=== PATIENT | male | born 1945 | race Caucasian/White ===

== ENCOUNTER 2016-08-28 18:50 | Inpatient (IN) | payer OTHER, MEDICARE ==
[2016-08-28] MEDS ORDERED: ONDANSETRON 4 MG/2 ML VIAL IVP ONE (19:07)
[2016-08-28] MEDS ORDERED: NS 1,000 ML IV ONE (19:07)
[2016-08-28] MEDS ORDERED: HYDROmorphONE/DILAUDID 1 MG/ML SYR IVP ONE ×2 (19:07→21:09)
--- NOTE | 2016-08-28 19:12 | EDPHY ---
H & P Stated Complaint: ureteral stent removed today increasing l flank pain Time Seen by Provider: 08/28/16 18:59 HPI/ROS: CHIEF COMPLAINT: Left flank pain and inguinal pain HISTORY OF PRESENT ILLNESS: The patient is a the 71-year-old man who comes to the emergency department complaining of severe left flank and inguinal pain. He had a urethral stent removed today by Dr. Jun Christopher. It was placed several weeks ago for kidney stones after lithotripsy. He had Uro jet for the procedure and did well but after returning home his pain gradually increased until it became unbearable. He spoke with Dr. Christopher over the phone who is concerned about another kidney stone. He took Vicodin with minimal relief and oxycodone with no relief. No nausea or vomiting. No hematuria REVIEW OF SYSTEMS: Constitutional: denies: chills, fever, recent illness, recent injury EENTM: denies: blurred vision, double vision, nose congestion Respiratory: denies: cough, shortness of breath Cardiac: denies: chest pain, irregular heart rate, lightheadedness, palpitations Gastrointestinal/Abdominal: denies: abdominal pain, diarrhea, nausea, vomiting, blood streaked stools Genitourinary: See HPI denies: dysuria, frequency, hematuria, Musculoskeletal: denies: joint pain, muscle pain Skin: denies: lesions, rash, jaundice, bruising Neurological: denies: headache, numbness, paresthesia, tingling, dizziness, weakness Hematologic/Lymphatic: denies: blood clots, easy bleeding, easy bruising Immunologic/allergic: denies: HIV/AIDS, transplant EXAM: GENERAL: Well-appearing, well-nourished and in no acute distress. HEAD: Atraumatic, normocephalic. EYES: Pupils equal round and reactive to light, extraocular movements intact, sclera anicteric, conjunctiva are normal. ENT: TMs normal, nares patent, oropharynx clear without exudates. Moist mucous membranes. NECK: Normal range of motion, supple without lymphadenopathy or JVD. LUNGS: Breath sounds clear to auscultation bilaterally and equal. No wheezes rales or rhonchi. HEART: Regular rate and rhythm without murmurs, rubs or gallops. ABDOMEN: Soft, nontender, normoactive bowel sounds. No guarding, no rebound. No masses appreciated. BACK: No CVA tenderness, no spinal tenderness, step-offs or deformities EXTREMITIES: Normal range of motion, no pitting or edema. No clubbing or cyanosis. NEUROLOGICAL: Cranial nerves II through XII grossly intact. Normal speech, normal gait. 5/5 strength, normal movement in all extremities, normal sensation PSYCH: Normal mood, normal affect. SKIN: Warm, dry, normal turgor, no visible rashes or lesions. Source: Patient Exam Limitations: No limitations - Personal History Current Tetanus/Diphtheria Vaccine: Unsure - Medical/Surgical History Hx Asthma: No Hx Chronic Respiratory Disease: No Hx Diabetes: Yes Hx Cardiac Disease: Yes Hx Renal Disease: No Hx Cirrhosis: No Hx Alcoholism: No Hx HIV/AIDS: No Hx Splenectomy or Spleen Trauma: No Other PMH: HTN,HYPERLIPIDEMIA,kidney stones - Family History Significant Family History: No pertinent family hx - Social History Smoking Status: Never smoked Alcohol Use: Sober Drug Use: None Constitutional: Initial Vital Signs Temperature (C) 36.5 C 08/28/16 18:55 Heart Rate 109 H 08/28/16 18:55 Respiratory Rate 19 08/28/16 18:55 Blood Pressure 154/101 H 08/28/16 18:55 O2 Sat (%) 95 08/28/16 18:55 O2 Delivery Mode Nasal Cannula O2 (L/minute) 2 Allergies/Adverse Reactions: Sulfa (Sulfonamide Antibiotics) Allergy (Intermediate, Verified 08/28/16 22:07) Home Medications: Medication Instructions Recorded Atorvastatin Calcium [Lipitor 10 10 mg PO HS 04/18/16 mg (*)] Enalapril Maleate [Vasotec 20 MG 20 mg PO BID 04/18/16 (*)] Fluticasone Nasal [Flonase Nasal 2 sprays [place] DAILY PRN 04/18/16 [place]] Pioglitazone HCl [Actos 15mg (*)] 15 mg PO DAILY 04/18/16 glipiZIDE [Glipizide] 5 mg PO BID 04/18/16 Hydrocodone/Acetaminophen [[place] 1 - 2 tab PO Q6H PRN 08/28/16 5/325 (*)] oxyCODONE IR [Oxycodone Ir (*)] 5 mg PO Q4-6PRN PRN 08/28/16 Medical Decision Making - Diagnostics Imaging: Results: CT scan of the abdomen or pelvis was obtained. The results of the study are positive for kidney stone 4 mm wide, 10 mm long. The study was read by Dr. Cisco Ghosh. I viewed the images myself on the PACS system. ED Course/Re-evaluation: We discussed the patient's CT results. He is still in pain although much better. I will Re treat him with Dilaudid. 9:45 p.m. the patient is still having pain. He will need to be admitted for pain control. Patient's daughter tells me now that he is also currently receiving radiation therapy for prostate cancer. His prostate was removed. Discussed the case with Dr. Magan [place]. Differential Diagnosis: Partial list of the Differential diagnosis considered include but were not limited to; kidney stone, hematoma, perforation and although unlikely based on the history and physical exam, I also considered urinary tract infection, diverticulitis. I discussed these differential diagnoses and the plan with the patient as well as the usual and expected course. The patient understands that the diagnosis is provisional and that in medicine we are not always correct and that further workup is often warranted. Usual and customary warnings were given. All of the patient's questions were answered. The patient was instructed to return to the emergency department should the symptoms at all worsen or return, otherwise to followup with the physician as we discussed. - Data Points Laboratory Results: Laboratory Results 08/28/16 19:53 08/28/16 19:53 Medications Given: Discontinued Medications Hydromorphone HCl (Dilaudid) 1 mg IVP EDNOW ONE Stop: 08/28/16 19:08 Last Admin: 08/28/16 20:03 Dose: 1 mg Hydromorphone HCl (Dilaudid) 1 mg IVP EDNOW ONE Stop: 08/28/16 21:10 Last Admin: 08/28/16 21:12 Dose: 1 mg Hydromorphone HCl (Dilaudid) 0.2 - 0.4 mg IVP Q2HRS PRN PRN Reason: Pain, Severe Unable to Take PO Stop: 09/07/16 22:07 Last Admin: 08/28/16 23:08 Dose: 0.4 mg Sodium Chloride (Ns) 1,000 mls @ 0 mls/hr IV ONCE ONE PRN Reason: Wide Open Stop: 08/28/16 19:08 Last Admin: 08/28/16 20:03 Dose: 1,000 mls Ondansetron HCl (Zofran) 4 mg IVP EDNOW ONE Stop: 08/28/16 19:08 Last Admin: 08/28/16 20:00 Dose: 4 mg Departure - Departure Disposition: [facility] Acute Clinical Impression: Renal colic on left side Condition: Fair
[2016-08-28] MEDS ORDERED: LETS SOLN TOPICAL 1 EA SYR TP ONE (19:25)
[2016-08-28 20:11] LABS: % IMMATURE GRANULYOCYTES 0.6 % (0.0-1.1); ABSOLUTE IMMATURE GRANULOCYTES 0.05 10^3/uL (0.00-0.10); ADD DIFF? NO; ADD MORPH? NO; ADD SCAN? NO; ATYPICAL LYMPHOCYTE FLAG 0 (0-99); FRAGMENT RBC FLAG 0 (0-99); HEMATOCRIT 36.3 % (40.0-51.0); HEMOGLOBIN 12.5 g/dL (13.7-17.5); LEFT SHIFT FLG 0 (0-99); LIPEMIA HEMOLYSIS FLAG 90 (0-99); MEAN CELL HEMOGLOBIN 31.1 pg (27.9-34.1); MEAN CELL HEMOGLOBIN CONCENTR. 34.4 g/dL (32.4-36.7); MEAN CELL VOLUME 90.3 fL (81.5-99.8); MEAN PLATELET VOLUME 8.3 fL (8.7-11.7); PLATELET CLUMPS FLAG 0 (0-99); PLATELET COUNT 280 10^3/uL (150-400); RED BLOOD CELL COUNT 4.02 10^6/uL (4.40-6.38); RED CELL DISTRIBUTION WIDTH 12.7 % (11.5-15.2)
[2016-08-28 20:18] LABS: COLOR PALE YELLOW; LEUKOCYTE ESTERASE,URINE NEGATIVE (NEGATIVE); NITRITE,URINE NEGATIVE (NEGATIVE)
[2016-08-28 20:19] LABS: ALANINE AMINOTRANSFERASE 38 IU/L (21-72); ALKALINE PHOSPHATASE 91 IU/L (38-126); ANION GAP 15 mEq/L (8-16); ASPARTATE AMINOTRANSFERASE 26 IU/L (17-59); BILIRUBIN,TOTAL 0.5 mg/dL (0.1-1.4); BILIRUBIN-CONJUGATED 0.3 mg/dL (0.0-0.5); BILIRUBIN-UNCONJUGATED 0.2 mg/dL (0.0-1.1); CALCIUM 9.5 mg/dL (8.5-10.4); CARBON DIOXIDE 21 mEq/l (22-31); CHLORIDE 98 mEq/L (97-110); CREATININE 1.4 mg/dL (0.7-1.3); GLOMERULAR FILTRATION RATE 50; GLUCOSE 148 mg/dL (70-100); POTASSIUM 4.6 mEq/L (3.5-5.2); SODIUM 134 mEq/L (134-144); TOTAL PROTEIN 6.9 g/dL (6.3-8.2)
[2016-08-28] MEDS ORDERED: IOPAMIDOL (ISOVUE-300) 50 ML VIAL IV ONE (20:29)
[2016-08-28] MEDS ORDERED: HYDROmorphONE/DILAUDID 1 MG/ML SYR ONE (21:02)
--- NOTE | 2016-08-28 21:40 | CT ---
CT Scan of the Urinary Tract (Abdomen and Pelvis Without Contrast) Clinical Indications: Severe left flank pain in a 71-year-old male with a history of nephrolithiasis who had a left ureteral stent removed today. Technique: Multidetector helical CT imaging was performed from the lung bases to the urinary bladder , without contrast. Axial images are obtained at 5-mm intervals and reformatted at 1.5-mm thickness. The examination is reviewed on the workstation at multiple window/level settings. Sagittal and coron al reformations are performed. Dose reduction techniques were utilized for this examination. Findings Abdomen: There is bilateral nephrolithiasis, with a single punctate calcification on the right side. On the left in the lower pole, there is a 9- x 4-mm nonobstructing calculus. There is also a punct ate nonobstructing calculus in the left upper collecting system. There is prominent hydronephrosis a s well as edema in the left perinephric fat. The left ureter is dilated throughout its course in the abdomen into the pelvis where there is a 10- x 4-mm distal left ureteral calculus. There is no righ t hydronephrosis or ureteral obstruction. The imaged noncontrast portions of the liver, spleen, gal lbladder, pancreas and adrenals are unremarkable. The aorta tapers normally. The lung bases are alicia ar. Pelvis: The bladder is decompressed and not well assessed on this study. Aortic calcification is se en, without aneurysmal dilatation. Minimal degenerative changes are noted in the spine. There is no free fluid seen. Impressions 1. Distal left ureteral calculus, measuring 10 x 4 mm, located in the deep pelvis, with associated l eft obstructive uropathy. 2. See above report for additional findings. A preliminary report was called to Dr. Melecio Joyner at 2110 hours in the Emergency Department. Attention: This CT examination is specifically designed to evaluate patients who are clinically susp ected of having acute obstructive uropathy. This examination does not use radiographic contrast, and as such, provides only a limited evaluation of the abdomen, pelvis and retroperitoneum.
[2016-08-28] MEDS ORDERED: ONDANSETRON DISINTEGRATING 4 MG TAB PO PRN (22:08)
[2016-08-28] MEDS ORDERED: HYDROmorphONE/DILAUDID 1 MG/ML SYR IVP PRN (22:08)
[2016-08-28] MEDS ORDERED: ACETAMINOPHEN 325 MG TAB PO PRN (22:08)
[2016-08-28] MEDS: NS 1,000 ML IV SCH (23:08)
[2016-08-28] MEDS ORDERED: NALOXONE HCL 0.4 MG/ML INJ IVP PRN (23:36)
[2016-08-29] MEDS: HYDROmorphONE/DILAUDID 6 MG/30 ML PCA IV PRN ×3 (00:02→16:12)
--- NOTE | 2016-08-29 00:16 | GHP ---
[f rep st] HISTORY AND PHYSICAL DATE OF ADMISSION: 08/28/2016 CHIEF COMPLAINT: Abdominal pain. HISTORY OF PRESENT ILLNESS: A 71-year-old male with a history of nephrolithiasis status post a urete ral stent removal the day of presentation. Patient reportedly left Dr. Christopher's clinic without any symptoms and within 30 minutes of returning home from stent removal developed left-sided abdominal p ain and testicular pain. Pain increased in intensity. Patient called Dr. Christopher's office. They c alled in a narcotic prescription, which had limited ability to control his pain, and was therefore se nt to the emergency department for evaluation. In the emergency department, the patient is endorsing some nausea. No vomiting. Endorsing left-sided testicular up to flank pain. Denies any changes in his bowel habits. Denies any hematuria. Denies any headaches, vision changes, palpitations, chest pain, shortness of breath. PAST MEDICAL HISTORY: 1. Nephrolithiasis status post ureteral stenting. 2. Diabetes mellitus. 3. Hypertension. 4. History of a facial abscess secondary to MRSA. 5. History of a left inguinal abscess secondary to MRSA. 6. Prostate cancer, receiving radiation. SOCIAL HISTORY: Negative for tobacco, alcohol, or illicit drugs. FAMILY HISTORY: Negative for prostate cancer. REVIEW OF SYSTEMS: A 10-point review of systems is negative with the exception of that reported in t he HPI. PHYSICAL EXAMINATION: VITAL SIGNS: Blood pressure 118/62, heart rate 93, respiratory rate 18, 92% o n room air, 37.1. GENERAL: This is a healthy-appearing middle-aged male in no acute distress. HEEN T: Notable for moist mucous membranes. Eye exam is negative for any icterus. CARDIAC: Patient is regular rate and rhythm. No murmurs, gallops, or rubs. PULMONARY: Patient is clear to auscultation bilaterally. GASTROINTESTINAL: Patient is obese, has positive bowel sounds, is markedly tender to palpation in the left lower and upper quadrants. No rebound or guarding. MUSCULOSKELETAL: Negative for any lower extremity edema. SKIN: Negative for any rashes. NEUROLOGIC: Patient is alert and o riented x3. PSYCHIATRIC: He is pleasant and cooperative on interview and examination. DATA: White count 8.4, hematocrit 36.3, platelets of 280. Creatinine of 1.4, recent baseline 1.1. Sodium 134, BUN 23, glucose of 148. Hemoglobin A1c 7.2. Liver function tests are normal. Urinalysi s shows 2+ protein, 1+ blood. CT of the abdomen, which I personally reviewed and interpreted, shows a 10 x 4 mm left-sided ureteral calculus. There is prominent hydronephrosis as well as edema of the left kidney per Radiology. ASSESSMENT AND PLAN: This is a 71-year-old male, presenting with a recurrent ureteral calculus. 1. Acute left ureteral calculus. Patient has marked pain with hydronephrosis and acute kidney injur y. Patient is being admitted. Will initiate IV Dilaudid for pain control, IV fluid resuscitation, a nd consult Urology for recommendations regarding intervention. Will also start Flomax. 2. Obstructive uropathy. Patient's creatinine is above his baseline. Will hold his FELIPE inhibitor, hydrate, initiate Flomax, and consult Urology. Recheck his renal function in the morning. 3. Diabetes. Continue patient's oral medications and diabetic diet. 4. Hypertension. Patient's blood pressures are adequately controlled at this time. Will hold his A CE inhibitor, hydrate, and follow his renal function in the morning. 5. Prophylaxis. Lovenox. DIET: Diabetic. DISPOSITION: Expecting greater than 2 midnights. Patient is requiring IV pain medications and urolo gic consultation for recurrent ureterolithiasis. I have discussed the case with the emergency room dickson oscar as well as the on-call urologist. They will consult the patient in the morning. /[id number]/MODL
[2016-08-29] MEDS: PANTOPRAZOLE SODIUM 40 MG TAB PO SCH ×2 (00:50→10:07)
[2016-08-29] MEDS: TAMSULOSIN HCL 0.4 MG CAP PO SCH ×3 (00:50→20:15)
[2016-08-29 05:25] LABS: % IMMATURE GRANULYOCYTES 0.6 % (0.0-1.1); ABSOLUTE IMMATURE GRANULOCYTES 0.03 10^3/uL (0.00-0.10); ADD DIFF? NO; ADD MORPH? NO; ADD SCAN? NO; ATYPICAL LYMPHOCYTE FLAG 20 (0-99); FRAGMENT RBC FLAG 0 (0-99); HEMATOCRIT 33.6 % (40.0-51.0); HEMOGLOBIN 11.2 g/dL (13.7-17.5); LEFT SHIFT FLG 0 (0-99); LIPEMIA HEMOLYSIS FLAG 80 (0-99); MEAN CELL HEMOGLOBIN 30.5 pg (27.9-34.1); MEAN CELL HEMOGLOBIN CONCENTR. 33.3 g/dL (32.4-36.7); MEAN CELL VOLUME 91.6 fL (81.5-99.8); MEAN PLATELET VOLUME 8.4 fL (8.7-11.7); PLATELET CLUMPS FLAG 0 (0-99); PLATELET COUNT 249 10^3/uL (150-400); RED BLOOD CELL COUNT 3.67 10^6/uL (4.40-6.38); RED CELL DISTRIBUTION WIDTH 12.8 % (11.5-15.2)
[2016-08-29 05:56] LABS: ANION GAP 12 mEq/L (8-16); CALCIUM 8.8 mg/dL (8.5-10.4); CARBON DIOXIDE 22 mEq/l (22-31); CHLORIDE 106 mEq/L (97-110); CREATININE 1.4 mg/dL (0.7-1.3); GLOMERULAR FILTRATION RATE 50; GLUCOSE 126 mg/dL (70-100); POTASSIUM 4.5 mEq/L (3.5-5.2); SODIUM 140 mEq/L (134-144)
[2016-08-29] MEDS: ENOXAPARIN 40 MG/0.4 ML SYR SC SCH (09:58)
[2016-08-29] MEDS: glipiZIDE 5 MG TAB PO SCH ×2 (09:58→20:12)
[2016-08-29] MEDS: PIOGLITAZONE HCL 15 MG TAB PO SCH (10:07)
[2016-08-29] MEDS: FLUTICASONE NASAL 120 SPRAYS/16 GM MDI EACHNARE PRN (10:41)
--- NOTE | 2016-08-29 12:58 | HOSPPROG ---
Hospitalist Progress Note Assessment/Plan: Left ureteral calculus with obstructive uropathy - Cr up to 1.4, but stable since yesterday. He has e/o hydro on CT with significant pain and stone is ~1 cm. No fevers or e/o infection, monitor closely -Urology to consult, suspect will need intervention FE due to above - IVF's, hold fide inhibitor, avoid nephrotoxic agents. DM - bg's adequately controlled on his oral hypoglycemics, continue Hypertension - Adequate control DVT PPLX - Lovenox for now, hold if intervention planned Full code Subjective: Pt reports pain better controlled. No fevers/chills/rigors. No N/ V. He has h/o kidney stones. Objective: Vital Signs Temp Pulse Resp BP Pulse Ox 36.9 C 106 H 14 132/59 H 96 08/29/16 11:52 08/29/16 11:52 08/29/16 11:52 08/29/16 11:52 08/29/16 11:52 Laboratory Results 08/29/16 05:04 08/29/16 05:04 08/28/16 08/29/16 08/30/16 05:59 05:59 05:59 Intake Total 595 Output Total 1225 Balance 595 -1225 - Physical Exam Constitutional: no apparent distress Eyes: PERRL Ears, Nose, Mouth, Throat: moist mucous membranes Cardiovascular: regular rate and rhythym Respiratory: no respiratory distress, clear to auscultation Gastrointestinal: normoactive bowel sounds, other (+TTP no r/r/g) Skin: warm Neurologic: AAOx3 Psychiatric: interacting appropriately ICD10 Worksheet Patient Problems: Problems Problem Status Diagnosed Renal colic on left side Acute Facial abscess Acute MRSA (methicillin resistant Staphylococcus aureus) Acute 04/18/16
[2016-08-29] MEDS: ONDANSETRON 4 MG/2 ML VIAL IVP PRN ×2 (14:53→18:39)
[2016-08-29] MEDS: NS 1,000 ML IV SCH (18:39)
[2016-08-29] MEDS: ATORVASTATIN CALCIUM 10 MG TAB PO SCH (20:12)
[2016-08-29] MEDS: HYDROCODONE/APAP 5/325 TAB PO PRN (20:14)
[2016-08-29] MEDS: NIFEdipine 10 MG CAP PO SCH (23:02)
[2016-08-30] MEDS: HYDROmorphONE/DILAUDID 6 MG/30 ML PCA IV PRN ×3 (02:13→16:45)
[2016-08-30] MEDS: HYDROCODONE/APAP 5/325 TAB PO PRN ×4 (02:14→14:44)
[2016-08-30] MEDS: NS 1,000 ML IV SCH (04:21)
[2016-08-30] MEDS: FLUTICASONE NASAL 120 SPRAYS/16 GM MDI EACHNARE PRN (07:26)
[2016-08-30] MEDS: glipiZIDE 5 MG TAB PO SCH (07:27)
[2016-08-30] MEDS: TAMSULOSIN HCL 0.4 MG CAP PO SCH ×3 (07:27→23:31)
[2016-08-30] MEDS: NIFEdipine 10 MG CAP PO SCH ×2 (07:27→17:07)
[2016-08-30] MEDS: PANTOPRAZOLE SODIUM 40 MG TAB PO SCH (07:27)
[2016-08-30] MEDS: PIOGLITAZONE HCL 15 MG TAB PO SCH (07:27)
[2016-08-30] MEDS: ENOXAPARIN 40 MG/0.4 ML SYR SC SCH (09:29)
--- NOTE | 2016-08-30 09:41 | HOSPPROG ---
Hospitalist Progress Note Assessment/Plan: Left ureteral calculus with obstructive uropathy - Cr up to 1.4, but stable since yesterday. He has e/o hydro on CT with significant pain and stone is ~1 cm. No fevers or e/o infection, monitor closely. Pain control with dilaudid [employer]. -OR today per urology for definitive management -NPO FE due to above - IVF's, hold fide inhibitor, avoid nephrotoxic agents. Prostate cancer - pt receiving daily XRT per [facility]. Will alert them in AM of pt admission. May be able to dc tomorrow and go for radiation. DM - bg's adequately controlled, hold glipizide today given npo status, check q6h bg's, prn low dose lispro Hypertension - Adequate control DVT PPLX - Lovenox held for procedure, place SCD's Full code Subjective: Pt reports pain is controlled. No fevers/chills. No CP or SOB. He has XRT mon-fri at [facility] for prostate cancer. NPO awaiting urology intervention. Objective: Vital Signs Temp Pulse Resp BP Pulse Ox 37.0 C 112 H 16 101/46 L 93 08/30/16 08:00 08/30/16 08:00 08/30/16 08:00 08/30/16 08:00 08/30/16 08:00 Laboratory Results 08/29/16 05:04 08/29/16 05:04 08/29/16 08/30/16 08/31/16 05:59 05:59 05:59 Intake Total 595 3808 0 Output Total 2675 350 Balance 595 1133 -350 - Physical Exam Constitutional: no apparent distress Eyes: PERRL Ears, Nose, Mouth, Throat: moist mucous membranes Cardiovascular: regular rate and rhythym Respiratory: no respiratory distress, clear to auscultation Gastrointestinal: normoactive bowel sounds, soft, non-tender abdomen Skin: warm Neurologic: AAOx3 Psychiatric: interacting appropriately ICD10 Worksheet Patient Problems: Problems Problem Status Diagnosed Renal colic on left side Acute Facial abscess Acute MRSA (methicillin resistant Staphylococcus aureus) Acute 04/18/16
[2016-08-30] MEDS ORDERED: D50W 25 GM/50 ML SYR IVP PRN (09:42)
[2016-08-30] MEDS ORDERED: INSULIN LISPRO 100 UNIT/ML SC SCH (10:00)
[2016-08-30] MEDS: D5W NS 1,000 ML IV SCH (11:30)
[2016-08-30 11:45] LABS: ANION GAP 10 mEq/L (8-16); CALCIUM 8.5 mg/dL (8.5-10.4); CARBON DIOXIDE 23 mEq/l (22-31); CHLORIDE 106 mEq/L (97-110); CREATININE 1.7 mg/dL (0.7-1.3); GLOMERULAR FILTRATION RATE 40; GLUCOSE 152 mg/dL (70-100); POTASSIUM 4.1 mEq/L (3.5-5.2); SODIUM 139 mEq/L (134-144)
[2016-08-30] MEDS: INSULIN LISPRO 100 UNIT/ML SC SCH ×3 (11:59→23:30)
--- NOTE | 2016-08-30 14:43 | SOAPPROG ---
SOAP Progress Note Assessment/Plan: Assessment: persistent left flank pain due to steinstrasse Plan:To OR today due to poor progression of stone fragments 08/30/16 14:41 Subjective: feeling poorly - flinching from flank pain Objective: Vital Signs Temp Pulse Resp BP Pulse Ox 36.8 C 109 H 20 124/68 H 92 08/30/16 14:00 08/30/16 14:00 08/30/16 14:00 08/30/16 14:00 08/30/16 14:00 Laboratory Results 08/29/16 05:04 08/30/16 11:10 08/29/16 08/30/16 08/31/16 05:59 05:59 05:59 Intake Total 595 3808 0 Output Total 2675 750 Balance 595 1133 -750 - Time Spent With Patient Time Spent With Patient: 33 min >50% face to face - Pending Discharge Pending Discharge Within 48 Hours: Yes Pending Discharge Date: 09/01/16 Pending Discharge Time: 11:00 Physical Exam - Physical Exam EENT: PERRL/EOMI Neck: non-tender Respiratory: chest non-tender Cardiac/Chest: normal peripheral pulses Abdomen: normal bowel sounds, guarding, other (++LEFT CVA tenderness) Male Genitalia: deferred Back: Normal inspection, CVA tenderness Skin: normal color Lymphatic: no adenopathy Extremities: normal range of motion Neuro/Psych: no motor/sensory deficits ICD10 Worksheet Patient Problems: Problems Problem Status Diagnosed Renal colic on left side Acute Facial abscess Acute MRSA (methicillin resistant Staphylococcus aureus) Acute 04/18/16
--- NOTE | 2016-08-30 15:12 | GCON ---
[f rep st] CONSULTATION DATE OF CONSULTATION: 08/29/2016 HISTORY OF PRESENT ILLNESS: This is a 71-year-old male with a history of nephrolithiasis with a gee nt removal on 08/28/2016. He had his stent removed today, had minimal discomfort at first and then renate Christopher's office, said he was having pain and a necrotic prescription was not effective. He is feeling better with the oral pain medication, but still having significant pain and I discussed with him his imaging results, which show steinstrasse for 1 cm on the left ureter and hydronephrosis . We will attempt medical management with tamsulosin and nifedipine and if this fails, then bring patrizia singleton to the operating room tomorrow. PAST MEDICAL HISTORY: Nephrolithiasis with stents, diabetes mellitus, hypertension, MRSA from a faci al abscess and left genital abscess, and history of prostate cancer. He has undergone radiation for this. SOCIAL HISTORY: Negative for tobacco, alcohol, and drugs. FAMILY HISTORY: Negative for prostate cancer. REVIEW OF SYSTEMS: A 10-point review of systems is negative, except for that reported in the history of present illness, so positive for nausea, vomiting, severe left flank pain, and CVA tenderness. PHYSICAL EXAMINATION: VITAL SIGNS: His blood pressures are 130s over 60s, heart rate is 90s, respir ations rate is 18, 92% on room air, 37.1. GENERAL: Healthy-appearing male, no acute distress. HEEN T: Normocephalic, atraumatic. CARDIAC: No JVD. No cyanosis. PULMONARY: No retractions or ____. No cyanosis. GASTROINTESTINAL: Obese. Positive bowel sounds. Markedly tender to palpation in the left lower and upper quadrants. No rebound tenderness or guarding. MUSCULOSKELETAL: Negativ e for any lower extremity edema. SKIN: Negative for rashes. NEUROLOGIC: Alert and oriented x3. P SYCHIATRIC: He is pleasant, cooperative, and normal mood and affect. LAB DATA: White count on admission is 84, hematocrit is 36.3, platelets 280. Creatinine 1.4, sodium 134, glucose 148. Hemoglobin A1c 7.2. Urinalysis shows 2+ protein and 1+ blood. IMAGING: CT of the abdomen showed a 10 x 4 mm group of small stones on the left side in the ureter w ith significant hydronephrosis. ASSESSMENT AND PLAN: 1. A 71-year-old male, presenting with recurrent ureteral calculus. This is likely steinstrasse and if he does not pass the stone, then we will perform intervention in the OR. 2. Obstructive uropathy. 3. Hold his FELIPE-inhibitor, and I agree with this. Continue Flomax and nifedipine, N.p.o. At [facility], and we will plan on the OR tomorrow. /[id number]/MODL
[2016-08-30] MEDS ORDERED: IOPAMIDOL (ISOVUE-M 300) 15 ML VIAL IV ONE (18:44)
[2016-08-30] MEDS ORDERED: LIDOCAINE 2% JELLY 20 ML (UROJECT) ONE (18:44)
[2016-08-30] MEDS ORDERED: LIDOCAINE 1% 5 ML SDV ONE (19:14)
[2016-08-30] MEDS ORDERED: MIDAZOLAM 2 MG/2 ML VIAL ONE (19:43)
[2016-08-30] MEDS ORDERED: LIDOCAINE 2% JELLY 5 ML TUBE ONE (20:02)
[2016-08-30] MEDS ORDERED: PROPOFOL/EMULSION 500 MG/50 ML BOTTLE IV ONE (20:02)
[2016-08-30] MEDS ORDERED: LIDOCAINE 2% 100 MG/5 ML SYR IVP ONE (20:03)
[2016-08-30] MEDS ORDERED: PHENYLEPHRINE HCL 100 MCG/ML SYR ONE (20:26)
[2016-08-30] MEDS ORDERED: ONDANSETRON 4 MG/2 ML VIAL ONE (20:44)
[2016-08-30] MEDS ORDERED: DEXAMETHASONE 4 MG/ML VIAL ONE (20:44)
[2016-08-30] MEDS ORDERED: ceFAZolin 1 GM VIAL ONE ×2 (20:44)
[2016-08-30] MEDS ORDERED: fentaNYL 100 MCG/2 ML INJ ONE (21:44)
--- NOTE | 2016-08-30 21:45 | DX ---
Fluoroscopy with single abdomen Images at 2031 hours History: Left ureteral stent placement for left ureterolithiasis. Fluoroscopy time: 0.3 seconds utilized intraoperatively by the radiology. Dose 1.6 mGy. Technique: Single abdomen intraoperative images have just been presented for interpretation. Findings: Double pigtail left ureteral stent identified with the proximal tip in the region of the le ft kidney and the distal tip in the region of the left side of the bladder. Calculus is noted overlyi ng the lower pole left kidney measuring at least 6 mm. Calculus in the left side of the distal ureter s not well visualized. IMPRESSION: Double pigtail ureteral stent in the region of the left renal collecting system.
[2016-08-30] MEDS ORDERED: HYDROCODONE/APAP 5/325 TAB ONE (22:32)
[2016-08-30] MEDS: ATORVASTATIN CALCIUM 10 MG TAB PO SCH (23:46)
[2016-08-31] MEDS: D5W NS 1,000 ML IV SCH (02:47)
[2016-08-31 05:38] LABS: ANION GAP 12 mEq/L (8-16); CARBON DIOXIDE 23 mEq/l (22-31); CHLORIDE 107 mEq/L (97-110); CREATININE 1.5 mg/dL (0.7-1.3); GLOMERULAR FILTRATION RATE 46; GLUCOSE 196 mg/dL (70-100); POTASSIUM 4.7 mEq/L (3.5-5.2); SODIUM 142 mEq/L (134-144)
[2016-08-31] MEDS: INSULIN LISPRO 100 UNIT/ML SC SCH (06:30)
[2016-08-31 07:40] VITALS: RESP 18
[2016-08-31] MEDS: TAMSULOSIN HCL 0.4 MG CAP PO SCH ×2 (07:51)
[2016-08-31] MEDS: PANTOPRAZOLE SODIUM 40 MG TAB PO SCH (07:51)
[2016-08-31] MEDS: HYDROCODONE/APAP 5/325 TAB PO PRN (10:40)
[2016-08-31] MEDS ORDERED: INSULIN LISPRO 100 UNIT/ML SC SCH (11:30)
[2016-08-31 11:34] VITALS: BP 120/59; PULSE 94; TEMP 97.9; O2SAT 94
--- NOTE | 2016-08-31 20:26 | GDS ---
[f rep st] DISCHARGE SUMMARY DISCHARGE DIAGNOSES: 1. Left ureteral calculus. 2. Obstructive uropathy. 3. Acute kidney injury. 4. Prostate cancer. 5. Diabetes mellitus. 6. Hypertension. CONSULTANTS: Urology, Dr. Shaan Agustin. HISTORY: For details, please see the dictated history and physical dated August 28. In brief, th e patient is a 71-year-old male with a history of prostate cancer and nephrolithiasis who presented t o the Emergency Department after removal of ureteral stent, complaining of left-sided abdominal pain. Imaging in the Emergency Department revealed a 4 x 10 mm left-sided ureteral calculus. He was admi tted to the hospital for further management. HOSPITAL COURSE: The patient admitted to the Medical-Surgical Unit. He received pain control with I V Dilaudid in the form of a [employer]. In addition, he received IV fluids. Urology was consulted. He was started on Flomax and nifedipine and he ultimately went to the operating room with Dr. Agustin for uro logic intervention and a stent was replaced at that time. Pathology is currently pending. His sympt oms are greatly improved in the postoperative setting. His creatinine on arrival was 1.4, this trend ed up to 1.7, and after urologic intervention his creatinine has trended down to 1.5 at the time of d ischarge. His enalapril has been held in the setting of his acute kidney injury and I will continue to hold this at discharge. He will need a repeat basic metabolic panel in a week and this can be res umed if his creatinine is normalized at that time. DISPOSITION: Patient is discharged home in stable condition. FOLLOWUP: 1. Dr. Shaan Agustin or Dr. Christianne Christopher for stent removal in [address] Costa Brady, primary care provider, in 1 week. He will need a basic metabolic panel to reche ck his creatinine at that time. DISCHARGE MEDICATIONS: Please see [employer] for completed, updated outpatient medication list. New medications on discharge include [place] 5/325, 1-2 tabs p.o. q.6 hours p.r.n. (#20, no refills) an d Flomax 0.4 mg p.o. daily (#30, no refills). He will continue all other outpatient medications as prescribed, except his enalapril is held at [facility] pending his repeat basic metabolic panel to ensure his renal function has normalized prior to r esuming his FELIPE inhibitor. /[id number]/MODL
[2016-09-04 17:39] LABS: SOURCE OF STONE L URETER
[2016-09-04 17:41] LABS: NIDUS NOT OBSERVED
--- NOTE | 2016-09-06 22:17 | GPROG ---
[f rep st] PROGRESS NOTE DATE OF SERVICE: 08/30/2016 ASSESSMENT: Failure to progress with left obstructing ureteral stones, steinstrasse, status post bladimir ckwave lithotripsy. PLAN: To the operating room for management of stone disease. OBJECTIVE: VITAL SIGNS: The vital signs are stable: 130s/70s, saturating well greater than 92% on room air, heart rate is in the 70s, breathing rate 15. GENERAL: Resting comfortably with moderate di stress, with spasmodic distress, up to 10/10 pain. NECK: Supple, no lymphadenopathy. CHEST: No re tractions, no pursed-lip breathing, no cyanosis. ABDOMEN: Soft. Tenderness to palpation over the l eft lower flank and the left lower quadrant to the abdomen. GENITALIA: A normal exam. Normal phall us. Testes descended bilaterally. MUSCULOSKELETAL: Moving all four extremities normally. CARDIOVA SCULAR: No lower extremity edema. /[id number]/MODL
--- NOTE | 2016-09-06 22:17 | GOP ---
[f rep st] OPERATIVE REPORT DATE OF OPERATION: 08/30/2016 SURGEON: Shaan Agustin MD PREOPERATIVE DIAGNOSIS: Left obstructing ureteral stones, steinstrasse. POSTOPERATIVE DIAGNOSIS: 1. Left obstructing ureteral stones, steinstrasse. 2. 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 PROCEDURE PERFORMED: Cystoscopy, left ureteroscopy, laser lithotripsy of stones and stone basketing, with stent placement. FINDINGS: INDICATIONS: The patient had his stent removed on 08/28/2016 due to poor passage of small fragments of stones. His stent was removed. Given the consideration that the stent was obstructing his ureters and passage of stones, he came into the emergency room that night with severe nausea, severe flank pa in, and steinstrasse. He has failed medical management. Here presents today for obstructing stones. Mp maxwell was brought to operating room for management of the stones. DESCRIPTION OF PROCEDURE: The patient was identified by name, medical record number, wrist band, bro ught to the operating room, placed supine on the table, prepped and draped in the standard surgical f ashion. cystoscope was inserted in the bladder visualized. Left and right ure teral orifices noted 0.038 Glidewire was then inserted up the left ureter and the stone b urden was poorly visualized on imaging. The ureteroscope, semirigid, was passed up the left ureter ov er a wire and the stone burden was addressed with a laser and these fragments were lithotripsied into sand. There was a larger fragment which was also lasertripsied into sand and this was basketed out. At the end of the procedure, a stent was placed. Noted to curl in the renal pelvis and the bladder. THIS IS A REPEAT DICTATION FROM 08/30/2016. /[id number]/MODL
== END 2016-08-31 14:41 | disposition home or self-care (01) | DRG 669 ==
LOC: OBSVTOIN 22:09 → F3E 22:40
PROVIDERS: ADMIT Internal Medicine; ATTEND Hospitalist
PROC: 0T778DZ Dilation of Left Ureter with Intraluminal Device, Via Natural or Artificial Opening Endoscopic (ICD-10-PCS; principal; 2016-08-30 19:59)
PROC: 0TC78ZZ Extirpation of Matter from Left Ureter, Via Natural or Artificial Opening Endoscopic (ICD-10-PCS; principal; 2016-08-30 19:59)
DX: N13.2 Hydronephrosis with renal and ureteral calculous obstruction (principal); N17.9 Acute kidney failure, unspecified; E11.9 Type 2 diabetes mellitus without complications; I10 Essential (primary) hypertension; E78.5 Hyperlipidemia, unspecified; Z85.46 Personal history of malignant neoplasm of prostate; Z86.14 Personal history of Methicillin resistant Staphylococcus aureus infection; N13.9 Obstructive and reflux uropathy, unspecified
CPT/HCPCS: 82365-90; 96374; C1769; C2625; J0690; J1100; J1170; J1650; J1815; J2001; J2250; J2370; J2405; J2704; J3010; Q9967

== ENCOUNTER 2016-11-30 19:38 | Observation (INO) | payer OTHER, MEDICARE ==
--- NOTE | 2016-11-30 20:54 | EDPHY ---
H & P Stated Complaint: abnormal renal lab values Time Seen by Provider: 11/30/16 20:45 HPI/ROS: CHIEF COMPLAINT: Abnormal blood work. HISTORY OF PRESENT ILLNESS: The patient is a 71-year-old male who presents after being advised by his physician of abnormal lab values. He reports that he saw his PCP today because he has had 4 days of vomiting. He has had associated left lower quadrant pain. He was called today and his PCP told him his kidney tests were abnormal and he needed to be seen in the ED. He has a history of multiple kidney stones. No fever, chills, chest pain, shortness of breath, palpitations, diarrhea, urinary complaints, headache, lightheadedness. He denies recent sick contact. He has a remote history of similar symptoms 4 years ago. REVIEW OF SYSTEMS: Aside from elements discussed in the HPI, a comprehensive 10-point review of systems was reviewed and is negative. PAST MEDICAL HISTORY: Prostate cancer treated with prostatectomy and 38 days of radiation, kidney, diabetes type II, hypertension, left bundle branch block. SOCIAL HISTORY: Here with family. VITAL SIGNS: Reviewed by me GENERAL: Well-developed, well-nourished, resting comfortably in no respiratory distress. HEENT: Atraumatic. Eyes: No icterus, no injection. Mouth: moist mucous membranes. No erythema or lesions. Neck: supple with no adenopathy. LUNGS: Clear to auscultation bilaterally, no wheezes, rhonchi or rales. CARDIAC: Regular rate and rhythm, no rubs, murmurs or gallops. ABDOMEN: Soft, nontender, nondistended, bowel sounds normal. BACK: Mild right CVA tenderness. EXTREMITIES: No trauma. No edema. Range of motion is normal throughout. NEURO: Alert and oriented, grossly nonfocal. SKIN: Warm and dry, no rash. PSYCHIATRIC: Normal mentation, no agitation. Portions of this note were transcribed by a medical sales consultant. I personally performed a history, physical exam, medical decision making, and confirmed accuracy of information the transcribed note. Source: Patient Exam Limitations: No limitations - Personal History Current Tetanus/Diphtheria Vaccine: Yes Current Tetanus Diphtheria and Acellular Pertussis (TDAP): Yes - Medical/Surgical History Hx Asthma: No Hx Chronic Respiratory Disease: No Hx Diabetes: Yes Hx Cardiac Disease: Yes Hx Renal Disease: Yes Hx Cirrhosis: No Hx Alcoholism: No Hx HIV/AIDS: No Hx Splenectomy or Spleen Trauma: No Other PMH: HTN,HYPERLIPIDEMIA,kidney stones, prostate CA, - Social History Smoking Status: Never smoked Constitutional: Initial Vital Signs Temperature (C) 36.7 C 11/30/16 19:50 Heart Rate 97 11/30/16 19:50 Respiratory Rate 16 11/30/16 19:50 Blood Pressure 150/105 H 11/30/16 19:50 O2 Sat (%) 95 11/30/16 19:50 O2 Delivery Mode Room Air Allergies/Adverse Reactions: Sulfa (Sulfonamide Antibiotics) Allergy (Intermediate, Verified 11/30/16 19:47) Home Medications: Medication Instructions Recorded Atorvastatin Calcium [Lipitor 10 10 mg PO DAILY 04/18/16 mg (*)] Pioglitazone HCl [Actos 15mg (*)] 15 mg PO DAILY 04/18/16 glipiZIDE [Glipizide] 5 mg PO BID 04/18/16 Hydrocodone/Acetaminophen [[place]red 1 - 2 tab PO Q3-4PRN PRN 08/28/16 5/325 (*)] Nebivolol HCl [Bystolic 5 mg (*)] 5 mg PO DAILY #30 tab 12/02/16 oxyCODONE IR [Oxycodone Ir (*)] 5 - 10 mg PO Q4H PRN #30 tab 12/02/16 Medical Decision Making - Diagnostics EKG Interpretation: 12-LEAD EKG: Please see the full report in [facility]. My interpretation: Normal sinus rhythm. Left bundle branch block. ED Course/Re-evaluation: 71-year-old male with a history of kidney stones and prostate cancer presents with 4 days of vomiting and intermittent left lower quadrant pain. He visited his PCP today and had lab work taken. His PCP told him his renal function was worsening and he needed to come into the ED. On exam he is tender in the lower abdomen. An IV was established and labs ordered. EKG obtained. 1L IV saline administered for hydration. BUN elevated at 39. Creatinine elevated at 2.1. 2205: Consulted with hospitalist. Admit to med surg. Patient comfortable in ED. No abdominal tenderness on my exam, inconsistent right flank tenderness. Differential Diagnosis: Diff dx considered included acute renal insuffiicency, obstructive post renal failure, urinary tract infection, pyelonephritis, dehydration, lab abnormalities. Consult/Admit Bed Type: Dr Valdez, [facility] - Data Points Laboratory Results: Laboratory Results 11/30/16 21:05 11/30/16 21:05 Medications Given: Discontinued Medications Hydrocodone Bitart/Acetaminophen ([place]red 5/325) 1 - 2 tab PO Q4HRS PRN PRN Reason: Pain, Moderate Able to Take PO Stop: 12/10/16 23:36 Last Admin: 12/02/16 12:18 Dose: 2 tab Atorvastatin Calcium (Lipitor) [address] [facility] Stop: 05/31/17 08:59 Last Admin: 12/02/16 08:46 Dose: 10 mg Glipizide (Glucotrol) 5 mg PO BID NARENDRA Stop: 05/30/17 20:59 Last Admin: 12/02/16 08:46 Dose: 5 mg Heparin Sodium (Porcine) (Heparin Sc Injection) 5,000 unit SC Q8 NARENDRA Stop: 05/30/17 05:59 Last Admin: 12/02/16 03:52 Dose: 5,000 unit Sodium Chloride (Ns) 1,000 mls @ 0 mls/hr IV ONCE ONE PRN Reason: Wide Open Stop: 11/30/16 21:04 Last Admin: 11/30/16 21:15 Dose: 1,000 mls Sodium Chloride (Ns) 1,000 mls @ 100 mls/hr IV CONT NARENDRA Stop: 05/29/17 23:44 Last Admin: 12/02/16 10:14 Dose: 1,000 mls Ceftriaxone Sodium/Dextrose (Rocephin 1 Gm (Premix)) 50 mls @ 100 mls/hr IV ONCE ONE Stop: 12/01/16 15:29 Last Admin: 12/01/16 15:13 Dose: 50 mls Insulin Human Lispro (Humalog Lispro) [address] [facility] PRN Reason: Protocol Stop: 05/30/17 07:59 Last Admin: 12/02/16 13:20 Dose: Not Given Lorazepam (Ativan) 2 mg PO ONCE ONE Stop: 12/01/16 15:01 Last Admin: 12/01/16 15:13 Dose: 2 mg Nebivolol (Bystolic) 5 mg PO DAILY NARENDRA Stop: 05/31/17 10:29 Last Admin: 12/02/16 12:36 Dose: 5 mg Ondansetron HCl (Zofran) 4 mg IVP Q4HRS PRN PRN Reason: Nausea/Vomiting, Can't Take PO Stop: 05/29/17 23:36 Last Admin: 12/01/16 00:07 Dose: 4 mg Pioglitazone HCl (Actos) [address] [facility] Stop: 05/31/17 08:59 Last Admin: 12/02/16 08:46 Dose: 15 mg Departure - Departure Disposition: [facility] Inpatient Acute Clinical Impression: Renal failure, Acute renal insufficiency Condition: Fair Report Scribed for: Althea Madden Report Scribed by: Stanley Barragan Date of Report: 11/30/16 Time of Report: 20:54
[2016-11-30] MEDS ORDERED: NS 1,000 ML IV ONE (21:03)
--- NOTE | 2016-11-30 21:17 | CPEKG ---
Heart Rate: 98 RR Interval: 612 P-R Interval: 152 QRSD Interval: 130 QT Interval: 344 QTC Interval: 440 P Veneta: 45 QRS Veneta: 18 T Wave Veneta: 193 EKG Severity - ABNORMAL ECG - EKG Impression: SINUS RHYTHM EKG Impression: LEFT BUNDLE BRANCH BLOCK Electronically Signed By: Althea Madden 01-Dec-2016 00:10:47
[2016-11-30 21:21] LABS: % IMMATURE GRANULYOCYTES 0.4 % (0.0-1.1); ABSOLUTE IMMATURE GRANULOCYTES 0.02 10^3/uL (0.00-0.10); ADD DIFF? NO; ADD MORPH? NO; ADD SCAN? NO; ATYPICAL LYMPHOCYTE FLAG 0 (0-99); FRAGMENT RBC FLAG 0 (0-99); HEMATOCRIT 34.9 % (40.0-51.0); HEMOGLOBIN 11.8 g/dL (13.7-17.5); LEFT SHIFT FLG 0 (0-99); LIPEMIA HEMOLYSIS FLAG 90 (0-99); MEAN CELL HEMOGLOBIN 30.5 pg (27.9-34.1); MEAN CELL HEMOGLOBIN CONCENTR. 33.8 g/dL (32.4-36.7); MEAN CELL VOLUME 90.2 fL (81.5-99.8); MEAN PLATELET VOLUME 8.3 fL (8.7-11.7); PLATELET CLUMPS FLAG 0 (0-99); PLATELET COUNT 295 10^3/uL (150-400); RED BLOOD CELL COUNT 3.87 10^6/uL (4.40-6.38); RED CELL DISTRIBUTION WIDTH 13.8 % (11.5-15.2)
[2016-11-30 21:36] LABS: COLOR YELLOW; LEUKOCYTE ESTERASE,URINE NEGATIVE (NEGATIVE); NITRITE,URINE NEGATIVE (NEGATIVE)
[2016-11-30 21:38] LABS: ALANINE AMINOTRANSFERASE 34 IU/L (21-72); ALBUMIN 4.4 g/dL (3.5-5.0); ALKALINE PHOSPHATASE 85 IU/L (38-126); ANION GAP 13 mEq/L (8-16); ASPARTATE AMINOTRANSFERASE 20 IU/L (17-59); BILIRUBIN,TOTAL 0.5 mg/dL (0.1-1.4); BILIRUBIN-CONJUGATED 0.4 mg/dL (0.0-0.5); BILIRUBIN-UNCONJUGATED 0.1 mg/dL (0.0-1.1); CALCIUM 10.2 mg/dL (8.5-10.4); CARBON DIOXIDE 24 mEq/l (22-31); CHLORIDE 99 mEq/L (97-110); CREATININE 2.1 mg/dL (0.7-1.3); GLOMERULAR FILTRATION RATE 31; GLUCOSE 175 mg/dL (70-100); POTASSIUM 4.9 mEq/L (3.5-5.2); SODIUM 136 mEq/L (134-144); TOTAL PROTEIN 7.7 g/dL (6.3-8.2)
[2016-11-30] MEDS ORDERED: ACETAMINOPHEN 325 MG TAB PO PRN (23:37)
[2016-11-30] MEDS ORDERED: ONDANSETRON 4 MG/2 ML VIAL IVP PRN (23:37)
[2016-11-30] MEDS ORDERED: ONDANSETRON DISINTEGRATING 4 MG TAB PO PRN (23:37)
[2016-12-01] MEDS: HYDROCODONE/APAP 5/325 TAB PO PRN ×6 (00:07→23:46)
[2016-12-01] MEDS: NS 1,000 ML IV SCH ×2 (00:08→10:30)
[2016-12-01] MEDS ORDERED: D50W 25 GM/50 ML SYR IVP PRN (01:54)
--- NOTE | 2016-12-01 01:56 | PDGENHP ---
History and Physical - Chief Complaint sent to ED for abnormal labs - History of Present Illness Patient was seen and evaluated on . Patient is a 71 year old male with hypertension, diabetes mellitus, history of prostate cancer and history of recurrent nephrolithiasis S/P multiple lithotripsies and ureteral stents (most recently L-sided in 08/2016) who was sent to the ED today by his PMD for abnormal lab work. Patient states for the past 5 days he has been experiencing nausea and vomiting, describing initially at least 2-3 episodes of vomiting daily especially after eating. He describes the vomitus as nonbloody and nonbilious, usually clear to whitish in color. By the weekend his symptoms seem to be slowing down and he was able to eat small amounts, but prior to this he had not been eating or drinking adequately. On Wednesday he had a routine appointment scheduled with this PMD where he relayed these symptoms. Labs were then ordered and patient was sent home. Later in the day labs revealed evidence of acute renal dysfunction with elevated BUN and creatinine, so patient was called and advised to come to the ED for further evaluation. Patient denies any significant abdominal pain or diarrhea associated with his nausea. He did report over the course of the past 5 days he had left lower quadrant pain that felt consistent with a kidney stone, and he did room managed to pass 2 small stones which he identified in his urine about 2 days ago. He denies any associated dysuria, fevers, chills, cough, shortness of breath or chest pain. Today he feels his nausea is significantly improved and has not vomited in the past 24 hours. On arrival to the ED patient was afebrile and hemodynamically stable. Labs confirmed elevated BUN creatinine, normal CBC. Was given IV fluid hydration and then admitted to the hospital service for further management. History Information - Allergies/Home Medication List Allergies/Adverse Reactions: Sulfa (Sulfonamide Antibiotics) Allergy (Intermediate, Verified 11/30/16 19:47) Home Medications: Atorvastatin Calcium [Lipitor 10 mg (*)] 10 mg PO HS 04/18/16 [Last Taken ] Fluticasone Nasal [Flonase Nasal [place]] 2 sprays EACHNARE DAILY PRN 04/18/16 [ Last Taken 08/28/16] Pioglitazone HCl [Actos 15mg (*)] 15 mg PO DAILY 04/18/16 [Last Taken 08/26/16] glipiZIDE [Glipizide] 5 mg PO BID 04/18/16 [Last Taken 04/18/16 07:00] Hydrocodone/Acetaminophen [[place] 5/325 (*)] 1 - 2 tab PO Q6H PRN 08/28/16 [Last Taken 08/28/16] Acetaminophen 11/30/16 [Last Taken Unknown] Enalapril Maleate 11/30/16 [Last Taken Unknown] Ibuprofen 11/30/16 [Last Taken Unknown] I have personally reviewed and updated: family history, medical history, social history, surgical history - Past Medical History diabetes type 2, hypertension Additional medical history: History of prostate cancer status post radiation therapy currently on Lupron. recurrent nephrolithiasis, with multiple lithotripsies, stone removals, ureteral stenting. history of MRSA skin abscesses in the inguinal and facial areas s/p I+Ds. LBBB - Surgical History Additional surgical history: Prostatectomy. lithotripsy. and ureteral stenting , most recently 08/2016. incision and drainage of skin abscesses - Family History Positive for: non-pertinent - Social History Smoking Status: Never smoked Alcohol Use: None Drug Use: None Additional social history: patient lives with his daughter, ambulates independently Review of Systems ROS: 10pt was reviewed & negative except for what was stated in HPI & below Physical Exam Temp Pulse Resp BP Pulse Ox 36.6 C 80 18 148/84 H 94 11/30/16 22:58 11/30/16 22:58 11/30/16 22:58 11/30/16 22:58 11/30/16 22:58 Constitutional: no apparent distress, appears nourished, not in pain Eyes: PERRL, anicteric sclera, EOMI Ears, Nose, Mouth, Throat: moist mucous membranes, hearing normal, ears appear normal, no oral mucosal ulcers Cardiovascular: regular rate and rhythym, no murmur, rub, or gallop, pulses symmetric bilaterally, No JVD, No edema Peripheral Pulses: 2+: dorsalis-pedis (R), dorsalis-pedis (L) Respiratory: no respiratory distress, no rales or rhonchi, clear to auscultation Gastrointestinal: normoactive bowel sounds, soft, non-tender abdomen, no palpable masses, No tenderness, No guarding, No rebound Genitourinary: no bladder fullness, no bladder tenderness Skin: warm, normal color, no rashes or abrasions, no fluctuance, no induration, No mottled Musculoskeletal: full muscle strength, no muscle tenderness, normal joint ROM, no joint effusions Neurologic: AAOx3, sensation intact bilaterally, CN II-XII Intact, No weakness, No numbness, No facial droop Psychiatric: interacting appropriately, not anxious, not encephalopathic, thought process linear Lab Data & Imaging Review 11/30/16 21:05 11/30/16 21:05 WBC 5.01 10^3/uL (3.80-9.50) 11/30/16 21:05 RBC 3.87 10^6/uL (4.40-6.38) L 11/30/16 21:05 Hgb 11.8 g/dL (13.7-17.5) L 11/30/16 21:05 Hct 34.9 % (40.0-51.0) L 11/30/16 21:05 MCV 90.2 fL (81.5-99.8) 11/30/16 21:05 MCH 30.5 pg (27.9-34.1) 11/30/16 21: MCHC 33.8 g/dL (32.4-36.7) 11/30/16 21:05 RDW 13.8 % (11.5-15.2) 11/30/16 21:05 Plt Count 295 10^3/uL (150-400) D 11/30/16 21:05 MPV 8.3 fL (8.7-11.7) L 11/30/16 21:05 Neut % (Auto) 70.0 % (39.3-74.2) 11/30/16 21:05 Lymph % (Auto) 13.6 % (15.0-45.0) L 11/30/16 21:05 [place] % (Auto) 9.8 % (4.5-13.0) 11/30/16 21:05 Eos % (Auto) 5.8 % (0.6-7.6) 11/30/16 21:05 Baso % (Auto) 0.4 % (0.3-1.7) 11/30/16 21:05 Nucleat RBC Rel Count 0.0 % (0.0-0.2) 11/30/16 21:05 Absolute Neuts (auto) 3.51 10^3/uL (1.70-6.50) 11/30/16 21:05 Absolute Lymphs (auto) 0.68 10^3/uL (1.00-3.00) L 11/30/16 21:05 Absolute Monos (auto) 0.49 10^3/uL (0.30-0.80) 11/30/16 21:05 Absolute Eos (auto) 0.29 10^3/uL (0.03-0.40) 11/30/16 21:05 Absolute Basos (auto) 0.02 10^3/uL (0.02-0.10) 11/30/16 21:05 Absolute Nucleated RBC 0.00 10^3/uL (0-0.01) 11/30/16 21:05 Immature Gran % 0.4 % (0.0-1.1) 11/30/16 21:05 Immature Gran # 0.02 10^3/uL (0.00-0.10) 11/30/16 21:05 Sodium 136 mEq/L (134-144) 11/30/16 21:05 Potassium 4.9 mEq/L (3.5-5.2) 11/30/16 21:05 Chloride 99 mEq/L (97-110) 11/30/16 21:05 Carbon Dioxide 24 mEq/l (22-31) 11/30/16 21:05 Anion Gap 13 mEq/L (8-16) 11/30/16 21:05 BUN 39 mg/dL (7-23) H 11/30/16 21:05 Creatinine 2.1 mg/dL (0.7-1.3) H 11/30/16 21:05 Estimated GFR 31 11/30/16 21:05 Glucose 175 mg/dL (70-100) H 11/30/16 21:05 Calcium 10.2 mg/dL (8.5-10.4) 11/30/16 21:05 Total Bilirubin 0.5 mg/dL (0.1-1.4) 11/30/16 21:05 Conjugated Bilirubin 0.4 mg/dL (0.0-0.5) 11/30/16 21:05 Unconjugated Bilirubin 0.1 mg/dL (0.0-1.1) 11/30/16 21:05 AST 20 IU/L (17-59) 11/30/16 21:05 ALT 34 IU/L (21-72) 11/30/16 21:05 Alkaline Phosphatase 85 IU/L (38-126) 11/30/16 21:05 Total Protein 7.7 g/dL (6.3-8.2) 11/30/16 21:05 Albumin 4.4 g/dL (3.5-5.0) 11/30/16 21:05 Lipase 87.0 IU/L (23-300) 11/30/16 21:05 Urine Color YELLOW 11/30/16 21:05 Urine Appearance CLEAR 11/30/16 21:05 Urine pH 5.0 (5.0-7.5) 11/30/16 21:05 Ur Specific [place] 1.023 (1.002-1.030) 11/30/16 21:05 Urine Protein NEGATIVE (NEGATIVE) 11/30/16 21:05 Urine Ketones NEGATIVE (NEGATIVE) 11/30/16 21:05 Urine Blood 1+ (NEGATIVE) H 11/30/16 21:05 Urine Nitrate NEGATIVE (NEGATIVE) 11/30/16 21:05 Urine Bilirubin NEGATIVE (NEGATIVE) 11/30/16 21: Urine Urobilinogen NEGATIVE EU (0.2-1.0) 11/30/16 21:05 Ur Leukocyte Esterase NEGATIVE (NEGATIVE) 11/30/16 21:05 Urine RBC 1-3 /hpf (0-3) 11/30/16 21:05 Urine WBC 1-3 /hpf (0-3) 11/30/16 21:05 Ur Epithelial Cells NONE SEEN /lpf (NONE-1+) 11/30/16 21:05 Ur Random Creatinine 107.9 mg/dL 11/30/16 23:00 Ur Random Sodium 84 mEq/L (30-90) 11/30/16 23:00 Ur Random Potassium 50.0 mEq/L (0.5-35.0) H 11/30/16 23:00 Ur Random Urea Nitrogn 850.0 mg/dL 11/30/16 23:00 Urine Glucose NEGATIVE (NEGATIVE) 11/30/16 21:05 Visualized and Interpreted imaging results: Yes Interpretation: abdominal ultrasound: no obvious hydronephrosis or stones visualized. Visualized and Interpreted EKG results: Yes EKG Interpretation: Positive for: left bundle branch block ( old) Assessment & Plan Assessment: patient is a 71-year-old male with history of hypertension, diabetes, recurrent nephrolithiasis and history of prostate cancer who presents to the ED from his PMD office for acute renal failure noted on routine blood work. Plan: # FE given patient's history of vomiting and decreased p. o. intake for the preceding 5 days, suspect this is prerenal in etiology. However given his history of nephrolithiasis and ureteral stenting, we obtained a abdominal ultrasound has ruled out any obvious obstruction. FeNa is also consistent with prerenal etiology. Will continue IV fluid hydration overnight and reassess labs in a.m.. Other electrolytes are within normal limits. # Nausea vomiting Patient describes 5 days of persistent nausea vomiting and decreased oral intake. Over the past 24-36 hours he feels his symptoms have been improving and has not vomited. LFTs including lipase are within normal limits. Suspect viral gastroenteritis versus gastritis. Denies any associated diarrhea, last BM was 1 day ago. Will continue to monitor and treat symptoms p.r.n. # Hypertension BP stable on presentation. Will hold FELIPE-I in setting of FE and monitor BP. Will start another agent if required. # DM2 Patient on oral meds at home, will hold these in setting of FE. FS wnl on BMP, will cont to monitor TIDAC and provide sliding scale insulin coverage. # h/o prostate cancer Stable, on lupron # dispo: admit to observation status for fe, likely prerenal in etiology #gen: diabetic diet DVT ppx: HSQ q8h Full code
[2016-12-01 04:32] LABS: % IMMATURE GRANULYOCYTES 0.7 % (0.0-1.1); ABSOLUTE IMMATURE GRANULOCYTES 0.03 10^3/uL (0.00-0.10); ADD DIFF? NO; ADD MORPH? NO; ADD SCAN? NO; ATYPICAL LYMPHOCYTE FLAG 0 (0-99); FRAGMENT RBC FLAG 0 (0-99); HEMATOCRIT 32.4 % (40.0-51.0); HEMOGLOBIN 10.7 g/dL (13.7-17.5); LEFT SHIFT FLG 0 (0-99); LIPEMIA HEMOLYSIS FLAG 80 (0-99); MEAN CELL HEMOGLOBIN 30.6 pg (27.9-34.1); MEAN CELL VOLUME 92.6 fL (81.5-99.8); MEAN PLATELET VOLUME 8.4 fL (8.7-11.7); PLATELET CLUMPS FLAG 0 (0-99); PLATELET COUNT 276 10^3/uL (150-400); RED CELL DISTRIBUTION WIDTH 13.8 % (11.5-15.2)
[2016-12-01 04:45] LABS: ANION GAP 13 mEq/L (8-16); CALCIUM 9.3 mg/dL (8.5-10.4); CARBON DIOXIDE 19 mEq/l (22-31); CHLORIDE 108 mEq/L (97-110); GLOMERULAR FILTRATION RATE 33; GLUCOSE 102 mg/dL (70-100); POTASSIUM 4.6 mEq/L (3.5-5.2); SODIUM 140 mEq/L (134-144)
[2016-12-01] MEDS: HEPARIN 5,000 UNIT/0.5 ML SYR SC SCH ×3 (06:10→20:43)
[2016-12-01] MEDS: INSULIN LISPRO 100 UNIT/ML SC SCH ×3 (07:49→19:10)
[2016-12-01] MEDS ORDERED: HYDROCODONE/APAP 5/325 TAB PO PRN (10:36)
[2016-12-01 12:41] LABS: APTT 25.2 SEC (23.0-38.0)
[2016-12-01 13:09] LABS: INR 1.06 (0.83-1.16); PROTIME(PATIENT) 13.7 SEC (12.0-15.0)
--- NOTE | 2016-12-01 13:25 | HOSPPROG ---
Hospitalist Progress Note Assessment/Plan: 71 yo M with PMH of DM, prostate cancer and recurrent nephrolithiasis as well as presumed ureteral stricture from prior radiation tx pw FE # FE: with FENa of 1.2 and no improvement w/IVF, on review of abd US there is moderate hydronephrosis on the left, prior ureteral stent on that side has been removed. Suspect obstructive uropathy related to likely ureteral stricture. Reviewed care plan with urology, they recommend perc neph tubes to be placed today and then f/u with them after dc. Will monitor overnight post neph tube placement # n/v: in setting of above and now resolved # hx of recurrent nephrolithiasis: no stones noted on recent abd US, as above, will f/u with urology after dc # DM2: resume home glucose medications # h/o prostate cancer # dispo: IP status, will need > 48 hours stay for eval/mgmt of above Patient new to my care. Old records reviewed/summarized as above. Care plan reviewed with Dr. Christopher of urology. Subjective: no significant overnight events, patient feels better this am, not having severe pain any longer Objective: Vital Signs Temp Pulse Resp BP Pulse Ox 36.3 C 90 16 145/91 H 97 12/01/16 04:21 12/01/16 04:21 12/01/16 04:21 12/01/16 04:21 12/01/16 04:21 Laboratory Results 12/01/16 04:21 12/01/16 04:21 11/30/16 12/01/16 12/02/16 05:59 05:59 05:59 Intake Total 1640 Output Total 545 500 Balance 1095 -500 PT 13.7 SEC (12.0-15.0) 12/01/16 12:20 INR 1.06 (0.83-1.16) 12/01/16 12:20 awake alert nad anicteric op clear rrr no mrg cta b soft nt nd no cce warm dry well perfused oriented appropriate - Time Spent With Patient Time Spent with Patient: greater than 35 minutes Time Spent with Patient: Greater than 35 minutes spent on this patients care, greater than 50% of time spent counseling, educating, and coordinating care regarding the above mentioned plan. ICD10 Worksheet Patient Problems: Problems Problem Status Onset Facial abscess Acute MRSA (methicillin resistant Staphylococcus aureus) Acute 04/18/16 Renal colic on left side Acute C. difficile diarrhea Acute 09/05/16 Renal failure Acute
[2016-12-01] MEDS ORDERED: LORazepam 1 MG TAB PO ONE (15:00)
[2016-12-01] MEDS ORDERED: HEPARIN/DEXTROSE 25,000 UNIT/500 ML BAG ONE (15:14)
[2016-12-01] MEDS ORDERED: IOPAMIDOL (ISOVUE-300) 100 ML BTL IV ONE ×2 (15:15→17:11)
[2016-12-01] MEDS ORDERED: LIDOCAINE 1% 30 ML SDV ONE (15:15)
[2016-12-01] MEDS ORDERED: fentaNYL 100 MCG/2 ML INJ ONE (15:59)
[2016-12-01] MEDS ORDERED: MIDAZOLAM 2 MG/2 ML VIAL ONE (16:06)
[2016-12-01] MEDS ORDERED: NALOXONE HCL 0.4 MG/ML INJ ONE (16:24)
[2016-12-01] MEDS ORDERED: FLUMAZENIL 0.5 MG/5 ML MDV IVP ONE (16:24)
--- NOTE | 2016-12-01 17:08 | POSTOPPROG ---
Post Op Note Date of Operation: 12/01/16 Surgeon: Rose Fontanez Anesthesia: IV Sedation (fentanyl and versed) Pre-op Diagnosis: obstructed LT kidney Post-op Diagnosis: same Indication: obstruction Procedure: LT perc neph tube placement Findings: Moderate hydronephrosis. Clean urine. Inf/Abcess present in the surg proc area at time of surgery?: No Depth: Superfical (Skin SQ) EBL: Minimal Complications: none Drains: Nephrostomy (LT 8Fr)
[2016-12-01] MEDS: glipiZIDE 5 MG TAB PO SCH (20:43)
[2016-12-02] MEDS: NS 1,000 ML IV SCH ×2 (00:40→10:14)
[2016-12-02] MEDS: HYDROCODONE/APAP 5/325 TAB PO PRN ×4 (03:51→12:18)
[2016-12-02] MEDS: HEPARIN 5,000 UNIT/0.5 ML SYR SC SCH (03:52)
[2016-12-02 05:10] LABS: % IMMATURE GRANULYOCYTES 0.4 % (0.0-1.1); ABSOLUTE IMMATURE GRANULOCYTES 0.02 10^3/uL (0.00-0.10); ADD DIFF? NO; ADD MORPH? NO; ADD SCAN? NO; ATYPICAL LYMPHOCYTE FLAG 10 (0-99); FRAGMENT RBC FLAG 0 (0-99); HEMATOCRIT 31.5 % (40.0-51.0); HEMOGLOBIN 10.5 g/dL (13.7-17.5); LEFT SHIFT FLG 0 (0-99); LIPEMIA HEMOLYSIS FLAG 80 (0-99); MEAN CELL HEMOGLOBIN 31.3 pg (27.9-34.1); MEAN CELL HEMOGLOBIN CONCENTR. 33.3 g/dL (32.4-36.7); MEAN CELL VOLUME 93.8 fL (81.5-99.8); MEAN PLATELET VOLUME 8.4 fL (8.7-11.7); PLATELET CLUMPS FLAG 0 (0-99); PLATELET COUNT 230 10^3/uL (150-400); RED BLOOD CELL COUNT 3.36 10^6/uL (4.40-6.38); RED CELL DISTRIBUTION WIDTH 13.5 % (11.5-15.2)
[2016-12-02 05:33] LABS: ANION GAP 11 mEq/L (8-16); CALCIUM 8.9 mg/dL (8.5-10.4); CARBON DIOXIDE 22 mEq/l (22-31); CHLORIDE 108 mEq/L (97-110); CREATININE 1.8 mg/dL (0.7-1.3); GLOMERULAR FILTRATION RATE 37; GLUCOSE 107 mg/dL (70-100); POTASSIUM 4.5 mEq/L (3.5-5.2); SODIUM 141 mEq/L (134-144)
[2016-12-02 08:38] VITALS: RESP 18; O2SAT 96
[2016-12-02] MEDS: glipiZIDE 5 MG TAB PO SCH (08:46)
[2016-12-02] MEDS: INSULIN LISPRO 100 UNIT/ML SC SCH ×2 (08:49→13:20)
[2016-12-02] MEDS ORDERED: PIOGLITAZONE HCL 15 MG TAB PO SCH (09:00)
[2016-12-02] MEDS ORDERED: ATORVASTATIN CALCIUM 10 MG TAB PO SCH (09:00)
[2016-12-02] MEDS ORDERED: NEBIVOLOL HCL 5 MG TAB PO SCH (10:30)
--- NOTE | 2016-12-02 10:32 | PDDCSUM ---
Discharge Summary Discharge Summary: Dates of service 11/30-12/02/16 Consultations: IR Procedures performed: percutaneous nephrostomy placement Hospital course by problem: # FE: 2/2 obstructive uropathy 2/2 likely to ureteral stricture in setting of multiple prior stents and radiation for prostate cancer. Percutaneous nephrostomy tube placed with improved renal function. Care plan reviewed with urology who will follow up with him in the next week for consideration of likely ureteral stent placement. # n/v: in setting of above and now resolved # hx of recurrent nephrolithiasis: no stones noted on recent abd US, as above, will f/u with urology after dc # DM2: resume home glucose medications # h/o prostate cancer--s/p surgery and xrt, on lupron currently Dispo: dc home, f/u with PCP Caitlyn as well as with Dr. Jun Christopher from urology > 35 minutes of care spent in dc, more than half in face to face/direct patient care regarding f/u care plan
[2016-12-02 11:59] VITALS: BP 154/72; PULSE 95; TEMP 98.2
== END 2016-12-02 13:17 | disposition home or self-care (01) ==
LOC: F1N 22:52
PROVIDERS: ADMIT Internal Medicine; ATTEND Internal Medicine
PROC: 0T9430Z Drainage of Left Kidney Pelvis with Drainage Device, Percutaneous Approach (ICD-10-PCS; principal; 2016-12-01)
PROC: BT42ZZZ Ultrasonography of Left Kidney (ICD-10-PCS; principal; 2016-12-01)
DX: N17.9 Acute kidney failure, unspecified (principal); N13.30 Unspecified hydronephrosis; E11.9 Type 2 diabetes mellitus without complications; I10 Essential (primary) hypertension; E78.5 Hyperlipidemia, unspecified; Z85.46 Personal history of malignant neoplasm of prostate; Z92.3 Personal history of irradiation; Z87.442 Personal history of urinary calculi; Z88.2 Allergy status to sulfonamides; Z86.14 Personal history of Methicillin resistant Staphylococcus aureus infection; R10.32 Left lower quadrant pain; R11.2 Nausea with vomiting, unspecified; R10.33 Periumbilical pain
CPT/HCPCS: 50432; 76770; 93005; 96360; 99152; 99285; C1729; C1769; G0378; G0463; J0696; J1644; J2250; J2405; J3010; Q9967; 80053-PO; 85025-PO; J2310

== ENCOUNTER 2016-12-06 12:57 | Emergency (ER) | payer OTHER, MEDICARE ==
--- NOTE | 2016-12-06 13:19 | EDPHY ---
H & P Time Seen by Provider: 12/06/16 13:04 HPI/ROS: CHIEF COMPLAINT: Constipation HISTORY OF PRESENT ILLNESS: Patient with recent hospitalization discharged on oral oxycodone presents with constipation and a feeling of needing to have a bowel movement and not being able to. Some lower abdominal discomfort and pressure. No rectal bleeding. Is passing some gas. REVIEW OF SYSTEMS: No fever or vomiting PAST MEDICAL HISTORY: Discharge summary dated 12/02/2016 personally reviewed. Includes hypertension, hyperlipidemia, kidney stones, prostate cancer, recent hospitalization for ureteral stricture requiring left-sided nephrostomy tube. Social history: Here with his son General Appearance: Alert and conversant, cooperative. Ambulatory, smiling. No peritoneal signs and no rebound or guarding, not distended. Nephrostomy tube in place on the left side. Large amount of stool in the vault. Ambulatory, normal rectal tone. No perirectal induration or fullness or fluctuance. Emergency Department course/MDM: Patient was manually disimpacted by myself with removing large amounts of stool from his rectal vault. Clinical exam fits the picture of constipation. I think bowel obstruction would be unlikely. Plan to discharge with increasing oral fluids and fiber with laxative of choice. Smoking Status: Never smoked Constitutional: Initial Vital Signs Temperature (C) 36.3 C 12/06/16 13:00 Heart Rate 76 12/06/16 13:00 Respiratory Rate 18 12/06/16 13:00 Blood Pressure 150/110 H 12/06/16 13:00 O2 Sat (%) 97 12/06/16 13:00 O2 Delivery Mode Room Air Allergies/Adverse Reactions: Sulfa (Sulfonamide Antibiotics) Allergy (Intermediate, Verified 12/06/16 13:00) Home Medications: Medication Instructions Recorded Atorvastatin Calcium [Lipitor 10 10 mg PO DAILY 04/18/16 mg (*)] Pioglitazone HCl [Actos 15mg (*)] 15 mg PO DAILY 04/18/16 glipiZIDE [Glipizide] 5 mg PO BID 04/18/16 Hydrocodone/Acetaminophen [[place] 1 - 2 tab PO Q3-4PRN PRN 08/28/16 5/325 (*)] Nebivolol HCl [Bystolic 5 mg (*)] 5 mg PO DAILY #30 tab 12/02/16 oxyCODONE IR [Oxycodone Ir (*)] 5 - 10 mg PO Q4H PRN #30 tab 12/02/16 MDM/Departure - Depart Disposition: Home, Routine, Self-Care Clinical Impression: Constipation Qualifiers: Constipation type: unspecified constipation type Qualified Code(s): K59.00 - Constipation, unspecified Condition: Good Instructions: Constipation (ED) Additional Instructions: Increase oral fluid and fiber intake. Laxative of choice. Referrals: NONE *PRIMARY CARE P,. [Primary Care Provider] - As per Instructions (Dr. Brady your PCP)
[2016-12-06 13:35] VITALS: BP 123/77; PULSE 78; RESP 14; TEMP 98.1; O2SAT 96
== END 2016-12-06 13:35 | disposition home or self-care (01) ==
DX: K59.00 Constipation, unspecified (principal)

== ENCOUNTER 2017-04-02 20:02 | Emergency (ER) | payer OTHER, MEDICARE ==
--- NOTE | 2017-04-02 22:15 | EDPHY ---
H & P Stated Complaint: constipation X 6 days post surgery Time Seen by Provider: 04/02/17 20:24 HPI/ROS: Chief Complaint: Constipation HPI: 72-year-old male who is 2 days status post ureteral stent placed by Dr. Christopher. He has been constipated for the last 2 days. States he feels that there is a very hard bowel up there. He took some magnesium citrate without any relief. Denies any significant abdominal pain. No fevers or chills. No urinary symptoms. ROS: 10 point Review of Systems is negative except as noted in the HPI. PMH: Ureteral stenosis, coronary disease, prostate cancer Social History: No smoking, no alcohol, no recreational drug use Family History: non-contributory Physical Exam: Gen: Awake, Alert, No Distress HEENT: Nose: no rhinorrhea Eyes: PERRLA, EOMI Mouth: Moist mucosa Neck: Supple, no JVD Chest: nontender, lungs clear to auscultation Heart: S1, S2 normal, no murmur Abd: Soft, non-tender, no guarding Back: no CVA tenderness, no midline tenderness Ext: no edema, non-tender Skin: no rash Neuro: CN II-XII intact, Sensation grossly intact, Strength 5/5 in bilateral upper and lower extremities - Personal History Current Tetanus/Diphtheria Vaccine: Yes Current Tetanus Diphtheria and Acellular Pertussis (TDAP): Yes - Medical/Surgical History Hx Asthma: No Hx Chronic Respiratory Disease: No Hx Diabetes: Yes Hx Cardiac Disease: No Hx Renal Disease: Yes Hx Cirrhosis: No Hx Alcoholism: No Hx HIV/AIDS: No Hx Splenectomy or Spleen Trauma: No Other PMH: HTN,HYPERLIPIDEMIA,kidney stones, prostate CA, renal issues, nephrostomy tube - Social History Smoking Status: Never smoked Constitutional: Initial Vital Signs Temperature (C) 37.0 C 04/02/17 20:05 Heart Rate 80 04/02/17 20:05 Respiratory Rate 16 04/02/17 20:05 Blood Pressure 156/95 H 04/02/17 20:05 O2 Sat (%) 97 04/02/17 20:05 O2 Delivery Mode Room Air Allergies/Adverse Reactions: Sulfa (Sulfonamide Antibiotics) Allergy (Intermediate, Verified 04/02/17 20:04) tomato Allergy (Verified 04/02/17 20:04) Home Medications: Medication Instructions Recorded Atorvastatin Calcium [Lipitor 10 10 mg PO DAILY 04/18/16 mg (*)] Pioglitazone HCl [Actos 15mg (*)] 15 mg PO DAILY 04/18/16 glipiZIDE [Glipizide] 5 mg PO BID 04/18/16 Hydrocodone/Acetaminophen [[place] 1 - 2 tab PO Q3-4PRN PRN 08/28/16 5/325 (*)] Nebivolol HCl [Bystolic 5 mg (*)] 5 mg PO DAILY #30 tab 12/02/16 oxyCODONE IR [Oxycodone Ir (*)] 5 - 10 mg PO Q4H PRN #30 tab 12/02/16 Medical Decision Making ED Course/Re-evaluation: Patient had a high soapsuds enema with significant hard stool production and relief of his symptoms. Departure - Departure Disposition: Home, Routine, Self-Care Clinical Impression: Constipation Condition: Good Instructions: Constipation (ED) Additional Instructions: Start taking MiraLax per label instructions every day. Make sure to drink plenty of fluids. Follow up with primary care doctor in 3-4 days. Return emergency depart for increasing pain, fevers chills, nausea, vomiting, or any other concerns. Referrals: GISELLE GONSALEZ [Other] - As per Instructions
[2017-04-02 22:37] VITALS: BP 130/77; PULSE 70; RESP 18; TEMP 98.2; O2SAT 96
== END 2017-04-02 22:39 | disposition home or self-care (01) ==
DX: K59.00 Constipation, unspecified (principal); I10 Essential (primary) hypertension; E11.9 Type 2 diabetes mellitus without complications; I25.10 Atherosclerotic heart disease of native coronary artery without angina pectoris; Z85.46 Personal history of malignant neoplasm of prostate

== ENCOUNTER → 2017-11-17 | Outpatient (CLI) | payer OTHER, MEDICARE | LOC: CIMAGING 08:59 | PROVIDERS: ATTEND Internal Medicine | DX: M79.671 Pain in right foot (principal); M19.071 Primary osteoarthritis, right ankle and foot | CPT/HCPCS: 73630-PO ==

== ENCOUNTER → 2018-08-30 | Outpatient (CLI) | payer OTHER, MEDICARE | LOC: CIMAGING 12:23 | PROVIDERS: ATTEND Internal Medicine | DX: N62 Hypertrophy of breast (principal) | CPT/HCPCS: 76641-PO ==

== ENCOUNTER 2018-11-21 10:20 | Emergency (ER) | payer OTHER, MEDICARE ==
--- NOTE | 2018-11-21 11:08 | EDPHY ---
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 Sands office-Internal Medicine this morning with history of a red lump to his right abdominal ball over the past day that drained spontaneously shower at home. Dr. Brady thinks the patient still warrants an I&D and sent him here for further evaluation. The patient reports mild discomfort to the area without any other associated symptoms reports there is moderate amount of purulent discharge today in the shower. ROS: Constitutional: No fevers or chills GI: No nausea vomiting Integumentary: No other skin rash 5 point review of symptoms is performed and otherwise negative with exception of pertinent positives and negatives listed in HPI and ROS Smoking Status: Never smoked Physical Exam: Physical Exam Vital signs are normal. General: No acute distress Eyes: Pupils equal and react to light. Extraocular motions are intact. Lungs: No respiratory distress. Cardiac: Brisk capillary refill is intact throughout. Pulses are 2+ and symmetric in the affected extremity. Skin: This patient has a 3 x 2 cm area of erythema to the right lower abdominal wall with mild tenderness and question fluctuance verses [place] edema. Neuro: Alert and oriented x3 with no sensorimotor deficits. Initial differential diagnosis: Furuncle-staph, MRSA, strep, etc. Constitutional: Initial Vital Signs Temperature (C) 36.5 C 11/21/18 10:30 Heart Rate 104 H 11/21/18 10:30 Respiratory Rate 16 11/21/18 10:30 Blood Pressure 151/92 H 11/21/18 10:30 O2 Sat (%) 95 11/21/18 10:30 O2 Delivery Mode Room Air Allergies/Adverse Reactions: Sulfa (Sulfonamide Antibiotics) Allergy (Intermediate, Verified 11/21/18 10:26) tomato sauce Allergy (Uncoded 11/21/18 10:26) Home Medications: Medication Instructions Recorded Pioglitazone HCl [Actos 15mg (*)] 15 mg PO DAILY 04/18/16 glipiZIDE [Glipizide] 5 mg PO BID 04/18/16 Hydrocodone/Acetaminophen [[place] 1 - 2 tab PO Q3-4PRN PRN 08/28/16 5/325 (*)] Doxycycline Hyclate [Vibramycin 100 mg PO BID #20 cap 11/21/18 100 MG (*)] Metoprolol Succinate 11/21/18 Vitamin D3 11/21/18 MDM/Departure - [facility] Procedures: Procedure: Abscess drainage. The patient's abscess was located on the right abdominal wall. I obtained verbal consent from the patient to drain the abscess who was informed about the possibility of bleeding and pain. The abscess was incised with 11. Scalpel blade and a minimal amount of purulent drainage was expressed. The patient tolerated the procedure well. The procedure was performed by myself. There were no complications. Given the patient's history of MRSA sent to culture - Depart Disposition: Home, Routine, Self-Care Clinical Impression: Furuncle of abdominal wall Condition: Good Instructions: Doxycycline (By mouth), Abscess (ED) Additional Instructions: Diagnosis: Furuncle to abdominal wall Plan: Apply warm packs to 3 times a day Clean it daily with warm soapy water Doxycycline antibiotic Yogurt and/or probiotic while on doxycycline to prevent diarrhea. Tylenol and/or ibuprofen for discomfort if needed Return for any significant worsening despite treatment plan. Prescriptions: Doxycycline Hyclate [Vibramycin 100 MG (*)] 100 mg PO BID #20 cap Referrals: Costa Brady MD [Primary Care Provider] - As per Instructions
[2018-11-21 11:36] VITALS: BP 120/76
== END 2018-11-21 11:15 | disposition home or self-care (01) ==
LOC: CED 10:20
PROC: 0H97XZZ Drainage of Abdomen Skin, External Approach (ICD-10-PCS; principal; 2018-11-21)
DX: L02.221 Furuncle of abdominal wall (principal); Z86.14 Personal history of Methicillin resistant Staphylococcus aureus infection
CPT/HCPCS: 99283-ER